=== PATIENT | female | born 1995 | race Caucasian/White ===

== ENCOUNTER 2019-02-23 23:53 | Inpatient (IN) ==
[2019-02-24] MEDS ORDERED: ONDANSETRON 4 MG TAB.RAPDIS PO PRN (00:03)
[2019-02-24] MEDS ORDERED: OXYTOCIN/DEXTROSE 5%-WATER 30 UNITS/500 ML BAG IV ONE ×2 (00:03→13:31)
[2019-02-24] MEDS ORDERED: RINGER'S SOLUTION,LACTATED 1,000 ML IV ONE (00:03)
[2019-02-24 00:24] LABS: Hematocrit 35.3 % (37.0-47.0); Hemoglobin 11.7 gm/dL (12.5-16.0); Mean Cell Volume 94.6 fl (78-100); Mean Corpuscular Hemoglobin 31.4 pg (27-31); Mean Corpuscular Hgb Conc 33.1 g/dl (32-36); Mean Platelet Volume 12.6 fl (8-12.5); Neutrophil # 9.2 K/mm3 (1.3-6.0); Neutrophil % 76.8 % (42-75.0); Platelet Count 112 K/mm3 (150-450); Red Blood Count 3.73 M/mm3 (4.2-5.4); Red Cell Distribution Width 13.3 % (11.5-14.0)
[2019-02-24 00:35] LABS: Cocaine Ur Negative (NEGATIVE); Urine Barbiturate Negative (NEGATIVE); Urine Benzodiazepines Negative (NEGATIVE); Urine Opiates Negative (NEGATIVE); Urine PCP Negative (NEGATIVE); Urine THC Negative (NEGATIVE)
[2019-02-24] MEDS: VANCOMYCIN HCL 1 GM in DEXTROSE 5 % IN WATER 250 ML IV SCH ×4 (00:42→12:05)
[2019-02-24] MEDS ORDERED: NALOXONE HCL 1 MG/1 ML SYRG IV PRN (03:53)
[2019-02-24] MEDS ORDERED: ONDANSETRON HCL/PF 2 MG/ML VIAL IV PRN (03:53)
[2019-02-24] MEDS ORDERED: BUPIVACAINE HCL/0.9 % NACL/PF 250 ML EP PRN (03:53)
[2019-02-24] MEDS ORDERED: LIDOCAINE HCL/EPINEPHRINE 20 ML VIAL IJ ONE (03:56)
[2019-02-24] MEDS ORDERED: fentaNYL CITRATE/PF 50 MCG/ML AMPUL IT SCH (04:00)
--- NOTE | 2019-02-24 04:38 | ANES ---
Anesthesia Pre Procedure Eval Vitals/Labs: Last Vital Signs Temp 36.1 C 02/24/19 01:55 Pulse 101 H 02/24/19 01:55 Resp 18 02/24/19 01:55 BP 138/74 02/24/19 01:55 Pulse Ox 99 02/24/19 01:55 Allergies/Adverse Reactions: Allergies Allergy/AdvReac Type Severity Reaction Status Date / Time Penicillins Allergy Severe Swelling Verified 02/24/19 01:46 of Throat penicillin G Allergy Intermediate Swelling Verified 02/24/19 01:46 of Throat latex AdvReac Swelling Verified 02/24/19 01:46 of Throat - Planned Procedure Planned Procedure: ELECTIVE INDUCTION 39 WEEKS Medication List Reviewed:: Yes Allergies Verified: Yes Medical History (Updated 02/14/19 @ 12:44 by Terrence Callahan DO) Thrombocytopenia (Acute) Onset Date: ~2012 2012 & 2014 & 2018 Anemia Marijuana abuse Mild Tourette's syndrome Onset Date: ~1999 Rh negative status during Tobacco abuse Asthma Onset Date: ~2004 no hospitalization, no current medications. Eczema History of seizure disorder Last seizure when pt was in grade school, no current medications. Hx of migraines Seasonal allergies Abnormal Papanicolaou smear of cervix with positive human papilloma virus (HPV) test Onset Date: ~09/04/14 Gestational hypertension Onset Date: ~08/2012 History of chlamydia infection Onset Date: ~05/22/16 Trigger thumb of right hand Onset Date: ~2004 ADD (attention deficit disorder) Onset Date: ~1999 no current medications Anorexia Onset Date: ~2007 Hospitalized at [facility] Gastric ulcer Onset Date: ~2006 no current medications Surgical History (Updated 12/30/18 @ 23:02 by Terrence Callahan DO) No pertinent past surgical history History of wisdom tooth extraction Onset Date: ~08/2014 Family History (Updated 09/01/18 @ 11:42 by Rosalia Kennedy LPN) Father Unknown family medical history Mother Breast cancer Endometriosis Anemia Thyroid disease - Family Anesthesia History Family History:: no untoward family reactions to anesthesia, no familial bleeding tendencies, no family history of clotting disorders, no family history of premature - Airway/Neck/Teeth Teeth Condition: intact Neck Exam: full range of motion Mallampatti Score: 2 Thyromental (T-M) distance: > 6 cm Mandibulo Hyoid distance: > 3 cm - Respiratory Respiratory History: asthma Respiratory Physical: lungs clear Smoking Status: Current every day smoker Sleep Apnea currently treated: No Sleep Apnea by current assessment: No - Cardiovascular Tolerate Activity: Fair Heart Sounds: S1 & S2, Regular - Anesthesia Assessment and Plan ASA Class: PS, II, E Anesthesia Type Plan: Epidural - CSE for labor analgesia
--- NOTE | 2019-02-24 05:00 | ANES ---
Post Anesthesia Discharge - Transfer of Care Transfer of Care handoff given to nurse: Yes - Discharge from PACU Discharge from PACU when meets criteria: Yes - Comfortable post CSE
--- NOTE | 2019-02-24 05:02 | ANES ---
Anesthesia Procedure Note Procedure Note: ANESTHESIA PROCEDURE NOTE Date of Procedure: [02/24/2019 Time of procedure: 4:35 AM. Performed by: TORIE Allen CRNA, MSN Clinical Appeals Rn: Danyell Miller RN. Preprocedure diagnosis: Active labor, labor pain. Post procedure diagnosis: Same. Procedure:Epidural for labor analgesia L3-4. Indications: Labor pain. Findings: See below. Details of the procedure: The patient was placed on the side of the bed in sitting positionand prepped with DuraPrep then draped in a sterile fashion. Lidocaine 1% was infiltrated to the skin and subcutaneous tissues at the level of the L3-4 interspace. An 18-gauge Touhy needle was used to approach the epidural space with loss of resistance technique. Once loss of resistance was achieved a 27-gauge spinal needle was passed through the epidural needle and CSF was contacted. After CSF returned, 20 mcg of fentanyl was injected in the spinal needle was removed the epidural catheter was then threaded approximately 4 cm in the epidural needle was removed. The catheter was taped in place and after careful aspiration 3 mL of 1.5% lidocaine with 1-200,000 epinephrine was injected without change in maternal heart rate or sensorium. . EBL: Minimal. Fluids: N/A. Specimen: N/A. Post procedure condition: The patient tolerated the procedure well with good relief. No complications were noted. Thank you for this consultation. Praful Fry CRNA, ARNP, MSN
--- NOTE | 2019-02-24 05:09 | ANES ---
Post Anesthesia Assessment - Vital Signs Vitals: Last Vital Signs Temp 36.1 C 02/24/19 01:55 Pulse 101 H 02/24/19 01:55 Resp 18 02/24/19 01:55 BP 138/74 02/24/19 01:55 Pulse Ox 99 02/24/19 01:55 Airway Patency: Normal - Mental Status Level Of Consciousness: Awake, Alert, Appropriate - Pain Level Pain Score: 0 - N/V Assessment Nausea/Vomiting Presence: None Dehydration:: No
--- NOTE | 2019-02-24 08:28 | HP ---
Chief Complaint - Chief Complaint Date of Service: 02/24/19 Time of Service: 08:28 Chief Complaint: elective induction of labor History of Present Illness: 23 yo at 39 weeks presents for elective induction of labor. This complicated by anemia, ashtma, chlamydia infection (1st trimester- tx'd), gestational thrombocytopenia, h/o of GHTN, smoker, and THC use. Rh negative Rubella immune GBS positive. Medical History (Updated 02/24/19 @ 08:28 by Terrence Callahan DO) Thrombocytopenia (Acute) Onset Date: ~2012 2012 & 2014 & 2018 Anemia Marijuana abuse Mild Tourette's syndrome Onset Date: ~1999 Rh negative status during Tobacco abuse Asthma Onset Date: ~2004 no hospitalization, no current medications. Eczema History of seizure disorder Last seizure when pt was in grade school, no current medications. Hx of migraines Seasonal allergies Abnormal Papanicolaou smear of cervix with positive human papilloma virus (HPV) test Onset Date: ~09/04/14 Gestational hypertension Onset Date: ~08/2012 History of chlamydia infection Onset Date: ~05/22/16 Trigger thumb of right hand Onset Date: ~2004 ADD (attention deficit disorder) Onset Date: ~1999 no current medications Anorexia Onset Date: ~2007 Hospitalized at [facility] Gastric ulcer Onset Date: ~2006 no current medications Surgical History: Surgical History (Updated 12/30/18 @ 23:02 by Terrence Callahan DO) No pertinent past surgical history History of wisdom tooth extraction Onset Date: ~08/2014 Family History: Family History (Updated 09/01/18 @ 11:42 by Rosalia Kennedy LPN) Father Unknown family medical history Mother Breast cancer Endometriosis Anemia Thyroid disease Social History: (Last Updated 02/15/19 @ 14:29 by Terrence Callahan DO) Social History: Marital status: Single household members: children current occupational status: unemployed current occupational exposures/hazards: No Highest education level completed: high school graduate Service: No Tobacco: Smoking Status: Current every day smoker tobacco type: cigarettes Alcohol: alcohol intake: current details: none since +UPT Substance Use: substance use type: marijuana, other details: stopped with +UPT Dietary Habits: caffeine: Yes caffeine comment: several daily Type: carbonated beverages, coffee, tea Personal Safety: do you feel safe at home: Yes victim of physical abuse: No victim of emotional abuse: No victim of sexual abuse: No Review Of Systems (GEN) - Review of Systems Generalized/Overall Review: Present: No Symptoms Reported EENTM: Present: No Symptoms Reported Respiratory: Present: No Symptoms Reported Cardiac: Present: No Symptoms Reported Abdominal: Present: No Symptoms Reported Genitourinary: Present: No Symptoms Reported Musculoskeletal: Present: No Symptoms Reported Neurological: Present: No Symptoms Reported Skin: Present: No Symptoms Reported Endocrine: Present: No Symptoms Reported Immunizations: IMMUNIZATION HX Immunizations Up to Date Yes History of Influenza Vaccine No Hx Pneumococcal Vaccination No Allergies/Adverse Reactions: Allergies Allergy/AdvReac Type Severity Reaction Status Date / Time Penicillins Allergy Severe Swelling Verified 02/24/19 01:46 of Throat penicillin G Allergy Intermediate Swelling Verified 02/24/19 01:46 of Throat latex AdvReac Swelling Verified 02/24/19 01:46 of Throat Exam - Exam Vital Signs: Vital Signs - Last Taken Temp 36.1 C 02/24/19 01:55 Pulse 101 H 02/24/19 01:55 Resp 18 02/24/19 01:55 BP 138/74 02/24/19 01:55 Pulse Ox 99 02/24/19 01:55 Constitutional: Present: Alert, Oriented x3, Cooperative, No distress ENT Exam: Present: hearing grossly normal Breasts: Present: Exam deferred Respiratory: Present: lungs clear, no respiratory distress Cardiovascular/Chest: Present: regular rate, rhythm, no edema Abdomen: Present: soft, nontender, no rebound tenderness, other - gravid /Rectal: Present: Other - 1-2/50/-2 Extremity: Present: no calf tenderness, lower extremity edema - 1+ Skin Exam: Present: normal color, warm/dry, no cyanosis Neurologic: Present: alert, normal mood/affect, oriented x 3 Appearance: Present: appropriate appearance, appropriate insight Eye contact: Present: cooperative, good eye contact Thoughts: Present: normal thought pattern Diagnostic Studies: Abnormal Lab Results 02/24/19 Range/Units 00:15 WBC 12.0 H (4.0-10.5) K/mm3 RBC 3.73 L (4.2-5.4) M/mm3 Hgb 11.7 L (12.5-16.0) gm/dL Hct 35.3 L (37.0-47.0) % MCH 31.4 H (27-31) pg Plt Count 112 L (150-450) K/mm3 MPV 12.6 H (8-12.5) fl Immature Gran % (Auto) 0.50 H (0.001-0.429) % Immature Gran # (Auto) 0.06 H (0.000-0.0310) K/mm3 Neutrophils % 76.8 H (42-75.0) % Lymphocytes % 14.8 L (20-51) % Neutrophils # 9.2 H (1.3-6.0) K/mm3 Laboratory Results WBC 12.0 K/mm3 (4.0-10.5) H 02/24/19 00:15 RBC 3.73 M/mm3 (4.2-5.4) L 02/24/19 00:15 Hgb 11.7 gm/dL (12.5-16.0) L 02/24/19 00:15 Hct 35.3 % (37.0-47.0) L 02/24/19 00:15 MCV 94.6 fl (78-100) 02/24/19 00:15 MCH 31.4 pg (27-31) H 02/24/19 00:15 MCHC 33.1 g/dl (32-36) 02/24/19 00:15 RDW 13.3 % (11.5-14.0) 02/24/19 00:15 Plt Count 112 K/mm3 (150-450) L 02/24/19 00:15 MPV 12.6 fl (8-12.5) H 02/24/19 00:15 Immature Gran % (Auto) 0.50 % (0.001-0.429) H 02/24/19 00:15 Immature Gran # (Auto) 0.06 K/mm3 (0.000-0.0310) H 02/24/19 00:15 76.8 % (42-75.0) H 02/24/19 00:15 14.8 % (20-51) L 02/24/19 00:15 6.7 % (0.0-9) 02/24/19 00:15 0.9 % (0.0-3.0) 02/24/19 00:15 0.3 % (0.0-1.0) 02/24/19 00:15 Nucleated RBC % 0.0 k/mm3 (0-1) 02/24/19 00:15 9.2 K/mm3 (1.3-6.0) H 02/24/19 00:15 1.77 k/mm3 (1.5-3.5) 02/24/19 00:15 0.8 k/mm3 (0.0-1.0) 02/24/19 00:15 0.1 k/mm3 (0.0-0.7) 02/24/19 00:15 Absolute Basophils 0.0 k/mm3 (0.0-0.1) 02/24/19 00:15 Negative (NEGATIVE) 02/24/19 00:19 Negative (NEGATIVE) 02/24/19 00:19 Ur Phencyclidine Scrn Negative (NEGATIVE) 02/24/19 00:19 Urine Amphetamine Negative (NEGATIVE) 02/24/19 00:19 U Benzodiazepines Scrn Negative (NEGATIVE) 02/24/19 00:19 Negative (NEGATIVE) 02/24/19 00:19 Negative (NEGATIVE) 02/24/19 00:19 Assessment/Plan - Assessment/Plan (1) Elective induction of labor planned Assessment: Admit for pitocin induction of labor. IV Vancomycin for GBS prophylaxis. Epidural PRN. Problem: Acute (2) Gestational thrombocytopenia without hemorrhage Problem: Chronic Qualifiers: Trimester: third trimester Qualified Code(s): O99.113 - Other diseases of the blood and blood-forming organs and certain disorders involving the immune mechanism complicating , third trimester; D69.6 - Thrombocytopenia, unspecified (3) GBS (group B Streptococcus carrier), +RV culture, currently Problem: Acute (4) History of gestational hypertension Problem: Chronic
--- NOTE | 2019-02-24 08:30 | PN ---
Progess Note - Interim Date: 02/24/19 Time: 08:29 Narrative: 02/24/19 08:29 Patient comfortable with epidural Vital signs stable. Pitocin at 12 mu/min. FHT: 150 baseline, reassuring contractions q 2-3 min Cervix: 3-4/40/-3, AROM-clear Impression: Intrauterine at 39 weeks elective induction of labor. GBS positive carrier with penicillin allergy and resistance to clindamycin-status post vancomycin x1 dose area Plan: Continue present plan
[2019-02-24] MEDS ORDERED: SENNOSIDES 8.6 MG TABLET PO PRN (13:31)
[2019-02-24] MEDS ORDERED: BENZOCAINE/MENTHOL 81 SPRAY CAN TP PRN (13:31)
[2019-02-24] MEDS ORDERED: HYDROCORTISONE 30 APPL TUBE TP PRN (13:31)
[2019-02-24] MEDS ORDERED: GLYCERIN/WITCH HAZEL LEAF 40 APPL BOX TP PRN (13:31)
[2019-02-24] MEDS ORDERED: BISACODYL 10 MG SUPP.RECT RC PRN (13:31)
--- NOTE | 2019-02-24 13:34 | OR ---
Operative Report - Dictated Report Narrative: Spontaneous vaginal delivery of vigorously crying viable male at 1306 on 02/24/2019 with Apgars 8 and 9, weighing 3771 g in OP presentation. Cord clamping delayed approximately 1 minute Placenta delivered complete, intact, with three vessel cord Estimated blood loss: Less than 50 ml Anesthesia: Epidural Lacerations: None History for MU History for MU Definition: * The number of deliveries resulting in a live the patient experienced prior to current hospitalization * The previous delivery of live twins or any live multiple gestation is considered one live event. *If primagravida or nulliparous is documented select zero for the number of previous live births. Live Events: Live Events: 2
[2019-02-24] MEDS: IBUPROFEN 800 MG TABLET PO PRN ×2 (13:52→19:56)
[2019-02-24] MEDS: oxyCODONE HCL/ACETAMINOPHEN 1 TAB TABLET PO PRN ×3 (15:01→23:18)
[2019-02-24] MEDS ORDERED: RHO(D) IMMUNE GLOBULIN 1,500 UNIT SYRINGE IM ONE (21:45)
[2019-02-24] MEDS: DOCUSATE SODIUM 100 MG CAPSULE PO SCH (21:48)
--- NOTE | 2019-02-25 07:52 | PN ---
Subjective - Date and Time Seen Date: 02/25/19 Time: 07:52 Objective - Vitals Vitals: Last Vital Signs Temp 36.8 C 02/25/19 07:13 Pulse 98 02/25/19 07:13 Resp 16 02/25/19 07:13 BP 120/61 02/25/19 07:13 Pulse Ox 98 02/25/19 07:13 Patient denies complaints. Lochia wnl abdomen - soft, nontender Uterus -firm, at umbilicus - 1 no calf tenderness Impression: day #1 - s/p spontaneous vaginal delivery. Plan: Continue routine care Cauti Physician Documentation - Urinary Catheter Management Urethral ([place]) Date of Insertion: 02/24/19 Time of Insertion: 05:15 Assessment/Plan - Problems/Diagnosis (1) Elective induction of labor planned Problem: Acute (2) Gestational thrombocytopenia without hemorrhage Problem: Chronic Qualifiers: Trimester: third trimester Qualified Code(s): O99.113 - Other diseases of the blood and blood-forming organs and certain disorders involving the immune mechanism complicating , third trimester; D69.6 - Thrombocytopenia, unspecified (3) GBS (group B Streptococcus carrier), +RV culture, currently Problem: Acute (4) History of gestational hypertension Problem: Chronic
[2019-02-25] MEDS: IBUPROFEN 800 MG TABLET PO PRN ×2 (08:11→21:07)
[2019-02-25] MEDS: DOCUSATE SODIUM 100 MG CAPSULE PO SCH ×2 (08:17→21:06)
[2019-02-25] MEDS: oxyCODONE HCL/ACETAMINOPHEN 1 TAB TABLET PO PRN ×2 (11:45→18:55)
[2019-02-26] MEDS: IBUPROFEN 800 MG TABLET PO PRN ×2 (07:42→13:32)
[2019-02-26] MEDS: DOCUSATE SODIUM 100 MG CAPSULE PO SCH ×2 (07:43→10:04)
[2019-02-26] MEDS: oxyCODONE HCL/ACETAMINOPHEN 1 TAB TABLET PO PRN (07:44)
--- NOTE | 2019-02-26 12:51 | PN ---
Subjective - Date and Time Seen Date: 02/26/19 Time: 12:50 Objective - Vitals Vitals: Last Vital Signs Temp 36.7 C 02/26/19 08:30 Pulse 95 02/26/19 08:30 Resp 16 02/26/19 08:30 BP 115/80 02/26/19 08:30 Pulse Ox 99 02/26/19 08:30 Patient denies complaints. Lochia wnl abdomen - soft, nontender Uterus -firm, at umbilicus - 2 no calf tenderness Impression: day #2 - s/p spontaneous vaginal delivery. Plan: Routine discharge instructions Cauti Physician Documentation - Urinary Catheter Management Urethral ([place]) Date of Insertion: 02/24/19 Time of Insertion: 05:15 Assessment/Plan - Problems/Diagnosis (1) Elective induction of labor planned Problem: Acute (2) Gestational thrombocytopenia without hemorrhage Problem: Chronic Qualifiers: Trimester: third trimester Qualified Code(s): O99.113 - Other diseases of the blood and blood-forming organs and certain disorders involving the immune mechanism complicating , third trimester; D69.6 - Thrombocytopenia, unspecified (3) GBS (group B Streptococcus carrier), +RV culture, currently Problem: Acute (4) History of gestational hypertension Problem: Chronic
[2019-02-26 13:39] VITALS: BP 143/73
== END 2019-02-26 13:45 | disposition home or self-care (01) | DRG 806 ==
LOC: OB 23:53
PROVIDERS: ADMIT Obstetrics & Gynecology; ATTEND Obstetrics & Gynecology
CPT/HCPCS: 36415; 59025; 80307; 85025; 85460; J2790

== ENCOUNTER 2020-02-16 00:02 | Inpatient (IN) ==
[2020-02-16] MEDS ORDERED: DEXTROSE 5%-LACTATED RINGERS 1,000 ML IV PRN (00:21)
[2020-02-16] MEDS ORDERED: OXYTOCIN/0.9 % SODIUM CHLORIDE 30 UNITS/500 ML BAG IV ONE ×2 (00:21→12:51)
[2020-02-16] MEDS ORDERED: RINGER'S SOLUTION,LACTATED 1,000 ML IV ONE (00:21)
[2020-02-16 00:42] LABS: Hematocrit 35.4 % (37.0-47.0); Hemoglobin 11.7 gm/dL (12.5-16.0); Mean Cell Volume 95.4 fl (78-100); Mean Corpuscular Hemoglobin 31.5 pg (27-31); Mean Corpuscular Hgb Conc 33.1 g/dl (32-36); Mean Platelet Volume 12.7 fl (8-12.5); Neutrophil # 8.4 K/mm3 (1.3-6.0); Neutrophil % 76.4 % (42-75.0); Platelet Count 112 K/mm3 (150-450); Red Blood Count 3.71 M/mm3 (4.2-5.4); Red Cell Distribution Width 13.8 % (11.5-14.0)
[2020-02-16 01:35] LABS: Cocaine Ur Negative (NEGATIVE); Urine Barbiturate Negative (NEGATIVE); Urine Benzodiazepines Negative (NEGATIVE); Urine Opiates Negative (NEGATIVE); Urine PCP Negative (NEGATIVE); Urine THC Negative (NEGATIVE)
[2020-02-16] MEDS ORDERED: ONDANSETRON HCL/PF 2 MG/ML VIAL IV PRN (03:27)
[2020-02-16] MEDS ORDERED: BUPIVACAINE HCL/0.9 % NACL/PF 250 ML EP PRN (03:27)
[2020-02-16] MEDS ORDERED: NALOXONE HCL 1 MG/1 ML SYRG IV PRN (03:27)
[2020-02-16] MEDS ORDERED: fentaNYL CITRATE/PF 50 MCG/ML AMPUL IT SCH (03:30)
--- NOTE | 2020-02-16 04:20 | ANES ---
Post Anesthesia Assessment - Vital Signs Vitals: Last Vital Signs Temp 36.7 C 02/16/20 00:25 Pulse 96 02/16/20 00:25 Resp 17 02/16/20 00:25 BP 138/71 02/16/20 00:25 Pulse Ox 99 02/16/20 00:25 Airway Patency: Normal - Mental Status Level Of Consciousness: Awake - Pain Level Pain Score: 2 - N/V Assessment Nausea/Vomiting Presence: None Dehydration:: No
--- NOTE | 2020-02-16 04:21 | ANES ---
Anesthesia Pre Procedure Eval Vitals/Labs: Last Vital Signs Temp 36.7 C 02/16/20 00:25 Pulse 96 02/16/20 00:25 Resp 17 02/16/20 00:25 BP 138/71 02/16/20 00:25 Pulse Ox 99 02/16/20 00:25 HOME MEDICATIONS NK 02/16/20 [Last Taken Unknown] Allergies/Adverse Reactions: Allergies Allergy/AdvReac Type Severity Reaction Status Date / Time Penicillins Allergy Severe Swelling Verified 02/16/20 00:23 of Throat penicillin G Allergy Intermediate Swelling Verified 02/16/20 00:23 of Throat latex AdvReac Swelling Verified 02/16/20 00:23 of Throat - Planned Procedure Planned Procedure: elective induction Medication List Reviewed:: Yes Allergies Verified: Yes Medical History (Last Reviewed 02/16/20 @ 04:20 by El Lamb CRNA) Bipolar affective disorder, current episode depressed (Chronic) Onset Date: Unknown Attention deficit hyperactivity disorder (Chronic) Onset Date: Unknown Anemia Onset Date: Unknown Marijuana abuse Onset Date: Unknown Mild Tourette's syndrome Onset Date: ~1999 Onset Date: 06/22/19 Rh negative status during Onset Date: 06/22/19 Thrombocytopenia affecting Onset Date: 12/01/19 Tobacco abuse Onset Date: Unknown Trichomoniasis Onset Date: 06/22/19 Asthma Onset Date: ~2004 no hospitalization, no current medications. Eczema Onset Date: Unknown History of seizure disorder Onset Date: Unknown Last seizure when pt was in grade school, no current medications. Hx of migraines Onset Date: Unknown Seasonal allergies Onset Date: Unknown Abnormal Papanicolaou smear of cervix with positive human papilloma virus (HPV) test Onset Date: ~09/04/14 Gestational hypertension Onset Date: ~08/2012 History of chlamydia infection Onset Date: ~05/22/16 Thrombocytopenia (Resolved) Onset Date: ~2012 2012 & 2014 & 2019 Trigger thumb of right hand Onset Date: ~2004 ADD (attention deficit disorder) Onset Date: ~1999 no current medications Anorexia Onset Date: ~2007 Hospitalized at [facility] Gastric ulcer Onset Date: ~2006 no current medications Surgical History (Last Reviewed 02/16/20 @ 04:20 by El Lamb CRNA) History of wisdom tooth extraction Onset Date: ~08/2014 Family History (Last Reviewed 02/16/20 @ 04:20 by El Lamb CRNA) Father Unknown family medical history Mother Breast cancer Endometriosis Anemia Thyroid disease - Family Anesthesia History Family History:: no untoward family reactions to anesthesia - Airway/Neck/Teeth Within Normal Limits:: Yes Teeth Condition: intact Neck Exam: full range of motion Mallampatti Score: 2 Thyromental (T-M) distance: > 6 cm Mandibulo Hyoid distance: > 3 cm - Respiratory Respiratory Physical: lungs clear Smoking Status: Current every day smoker Discussed smoking cessation including day of surgery: Yes Sleep Apnea currently treated: No Sleep Apnea by current assessment: No - Cardiovascular Tolerate Activity: Good Heart Sounds: S1 & S2, Regular - Gastrointestinal NPO since: mn - Anesthesia Assessment and Plan ASA Class: PS, II, E Anesthesia Type Plan: Epidural Planned difficult intubation/equipment available: No
--- NOTE | 2020-02-16 04:21 | ANES ---
Post Anesthesia Discharge - Transfer of Care Transfer of Care handoff given to nurse: Yes - Anesthesia Post Op Note Anesthesia Post Op Note: Care transferred to OB RN
--- NOTE | 2020-02-16 04:23 | ANES ---
Anesthesia Procedure Note Procedure Note: ANESTHESIA PROCEDURE NOTE Date of Procedure: 02/16/2020 Time of procedure: 09 15. Performed by: Romeo Lamb CRNA Forensic Chemist: None. Preprocedure diagnosis: Active labor. Post procedure diagnosis: Same. Procedure: Insertion of labor epidural. Indications: The patient is a 24-year-old multigravida female in active labor requesting labor epidural for pain management. Findings: See below. Details of the procedure: The patient was placed in a sitting position. Back was prepped with DuraPrep. Patient was then draped in a sterile fashion. Lidocaine 1% was infiltrated to the skin and subcutaneous tissues at the level of the L3 4 interspace. The epidural space was identified using a 18-gauge Tuohy needle with [id number] technique. 20 mcg fentanyl was given intrathecally using a 27 ga. spinal needle. Epidural catheter was inserted without difficulty. Negative test dose was elicited using 5 mL of 1.5% preservative-free lidocaine plus epinephrine 1 200,000. The epidural catheter was then taped and secured in place. EBL: Minimal. Fluids: N/A. Specimen: N/A. Post procedure condition: The patient tolerated the procedure well. No complications were noted. Thank you for this consultation. Lanier CRNA
--- NOTE | 2020-02-16 08:45 | HP ---
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 This complicated by anemia, ADHD, asthma, bipolar d/o, gestational thrombocytopenia, smoker, THC use, and h/o GHTN. Rh negative Rubella immune GBS negative Medical History (Last Reviewed 02/16/20 @ 08:38 by Terrence Callahan DO) Bipolar affective disorder, current episode depressed (Chronic) Onset Date: Unknown Attention deficit hyperactivity disorder (Chronic) Onset Date: Unknown Anemia Onset Date: Unknown Marijuana abuse Onset Date: Unknown Mild Tourette's syndrome Onset Date: ~1999 Onset Date: 06/22/19 Rh negative status during Onset Date: 06/22/19 Thrombocytopenia affecting Onset Date: 12/01/19 Tobacco abuse Onset Date: Unknown Trichomoniasis Onset Date: 06/22/19 Asthma Onset Date: ~2004 no hospitalization, no current medications. Eczema Onset Date: Unknown History of seizure disorder Onset Date: Unknown Last seizure when pt was in grade school, no current medications. Hx of migraines Onset Date: Unknown Seasonal allergies Onset Date: Unknown Abnormal Papanicolaou smear of cervix with positive human papilloma virus (HPV) test Onset Date: ~09/04/14 Gestational hypertension Onset Date: ~08/2012 History of chlamydia infection Onset Date: ~05/22/16 Thrombocytopenia (Resolved) Onset Date: ~2012 2012 & 2014 & 2019 Trigger thumb of right hand Onset Date: ~2004 ADD (attention deficit disorder) Onset Date: ~1999 no current medications Anorexia Onset Date: ~2007 Hospitalized at [facility] Gastric ulcer Onset Date: ~2006 no current medications Surgical History: Surgical History (Last Reviewed 02/16/20 @ 08:39 by Terrence Callahan DO) History of wisdom tooth extraction Onset Date: ~08/2014 Family History: Family History (Last Reviewed 02/16/20 @ 08:39 by Terrence Callahan DO) Father Unknown family medical history Mother Breast cancer Endometriosis Anemia Thyroid disease Social History: (Last Reviewed 02/16/20 @ 08:39 by Terrence Callahan DO) Social History: adopted: No long term: No Marital status: Single household members: children, significant other number of children: 3 current occupational status: unemployed current occupational exposures/hazards: No Highest education level completed: high school graduate Sexually Active: Yes Service: No Tobacco: Smoking Status: Current every day smoker tobacco type: cigarettes Smoking cigarettes per day: 10 Alcohol: alcohol intake: current alcohol intake frequency: holiday/special occasion details: none since +UPT Substance Use: substance use type: marijuana, other details: Stopped with +UPT Dietary Habits: caffeine: No Exercise: frequency: does not exercise Hattie/Judaism: agree to transfusion: Yes Personal Safety: do you feel safe at home: Yes victim of physical abuse: No victim of emotional abuse: No victim of sexual abuse: No Review Of Systems (GEN) - Review of Systems Generalized/Overall Review: Present: No Symptoms Reported EENTM: Present: No Symptoms Reported Respiratory: Present: No Symptoms Reported Cardiac: Present: No Symptoms Reported Abdominal: Present: No Symptoms Reported Genitourinary: Present: No Symptoms Reported Musculoskeletal: Present: No Symptoms Reported Neurological: Present: No Symptoms Reported Skin: Present: No Symptoms Reported Endocrine: Present: No Symptoms Reported Immunizations: IMMUNIZATION HX Immunizations Up to Date Yes History of Influenza Vaccine No Hx Pneumococcal Vaccination No Allergies/Adverse Reactions: Allergies Allergy/AdvReac Type Severity Reaction Status Date / Time Penicillins Allergy Severe Swelling Verified 02/16/20 00:23 of Throat penicillin G Allergy Intermediate Swelling Verified 02/16/20 00:23 of Throat latex AdvReac Swelling Verified 02/16/20 00:23 of Throat Home Medications: HOME MEDICATIONS NK 02/16/20 [Last Taken Unknown] Exam - Exam Vital Signs: Vital Signs - Last Taken Temp 36.7 C 02/16/20 00:25 Pulse 96 02/16/20 00:25 Resp 17 02/16/20 00:25 BP 138/71 02/16/20 00:25 Pulse Ox 99 02/16/20 00:25 Constitutional: Present: Alert, Oriented x3, Cooperative, No distress ENT Exam: Present: hearing grossly normal Breasts: Present: Exam deferred Respiratory: Present: lungs clear, no respiratory distress Cardiovascular/Chest: Present: regular rate, rhythm, no edema Abdomen: Present: soft, nontender, no rebound tenderness, other - gravid /Rectal: Present: Other - Cervix 3/60/-2 Extremity: Present: no pedal edema, no calf tenderness Skin Exam: Present: normal color, warm/dry, no cyanosis Neurologic: Present: alert, normal mood/affect, oriented x 3 Appearance: Present: appropriate appearance, appropriate insight Eye contact: Present: cooperative, good eye contact Thoughts: Present: normal thought pattern, normal mood /affect Diagnostic Studies: Abnormal Lab Results 02/16/20 Range/Units 00:30 WBC 11.0 H (4.0-10.5) K/mm3 RBC 3.71 L (4.2-5.4) M/mm3 Hgb 11.7 L (12.5-16.0) gm/dL Hct 35.4 L (37.0-47.0) % MCH 31.5 H (27-31) pg Plt Count 112 L (150-450) K/mm3 MPV 12.7 H (8-12.5) fl Immature Gran # (Auto) 0.04 H (0.000-0.0310) K/mm3 Neutrophils % 76.4 H (42-75.0) % Lymphocytes % 16.8 L (20-51) % Neutrophils # 8.4 H (1.3-6.0) K/mm3 Laboratory Results WBC 11.0 K/mm3 (4.0-10.5) H 02/16/20 00:30 RBC 3.71 M/mm3 (4.2-5.4) L 02/16/20 00:30 Hgb 11.7 gm/dL (12.5-16.0) L 02/16/20 00:30 Hct 35.4 % (37.0-47.0) L 02/16/20 00:30 MCV 95.4 fl (78-100) 02/16/20 00:30 MCH 31.5 pg (27-31) H 02/16/20 00:30 MCHC 33.1 g/dl (32-36) 02/16/20 00:30 RDW 13.8 % (11.5-14.0) 02/16/20 00:30 Plt Count 112 K/mm3 (150-450) L 02/16/20 00:30 MPV 12.7 fl (8-12.5) H 02/16/20 00:30 Immature Gran % (Auto) 0.40 % (0.001-0.429) 02/16/20 00:30 Immature Gran # (Auto) 0.04 K/mm3 (0.000-0.0310) H 02/16/20 00:30 Neutrophils % 76.4 % (42-75.0) H 02/16/20 00:30 Lymphocytes % 16.8 % (20-51) L 02/16/20 00:30 Monocytes % 5.4 % (0.0-9) 02/16/20 00:30 Eosinophils % 0.8 % (0.0-3.0) 02/16/20 00:30 Basophils % 0.2 % (0.0-1.0) 02/16/20 00:30 Nucleated RBC % 0.0 k/mm3 (0-1) 02/16/20 00:30 Neutrophils # 8.4 K/mm3 (1.3-6.0) H 02/16/20 00:30 Lymphocytes # 1.84 k/mm3 (1.5-3.5) 02/16/20 00:30 Monocytes # 0.6 k/mm3 (0.0-1.0) 02/16/20 00:30 Eosinophils # 0.1 k/mm3 (0.0-0.7) 02/16/20 00:30 Absolute Basophils 0.0 k/mm3 (0.0-0.1) 02/16/20 00:30 Urine Opiates Screen Negative (NEGATIVE) 02/16/20 00:21 Barbiturate Screen Negative (NEGATIVE) 02/16/20 00:21 Ur Phencyclidine Scrn Negative (NEGATIVE) 02/16/20 00:21 Urine Amphetamine Negative (NEGATIVE) 02/16/20 00:21 U Benzodiazepines Scrn Negative (NEGATIVE) 02/16/20 00:21 Urine Cocaine Screen Negative (NEGATIVE) 02/16/20 00:21 Urine Marijuana (THC) Negative (NEGATIVE) 02/16/20 00:21 Assessment/Plan - Assessment/Plan (1) Encounter for induction of labor Assessment: Admit for induction of labor. Epidural PRN. Problem: Acute (2) Asthma Problem: Acute Qualifiers: Asthma persistence: unspecified Asthma complication type: uncomplicated (3) Smoker Problem: Chronic (4) Marijuana use Problem: Inactive (5) Bipolar affective disorder, current episode depressed Problem: Chronic Qualifiers: Current episode severity: mild Qualified Code(s): F31.31 - Bipolar disorder, current episode depressed, mild (6) Attention deficit hyperactivity disorder Problem: Chronic Qualifiers: (7) Gestational thrombocytopenia without hemorrhage Problem: Chronic Qualifiers: Trimester: third trimester (8) History of gestational hypertension Problem: Chronic
--- NOTE | 2020-02-16 08:46 | PN ---
Progess Note - Interim Date: 02/16/20 Time: 08:45 Narrative: 02/16/20 08:45 Patient comfortable with epidural Vital signs stable. Pitocin at 8 mu/min. FHT: 120 baseline, reassuring contractions q 2-3 min Cervix: 4/50/-2, AROM-clear at 0810. Impression: Intrauterine at 39 weeks induction of labor Plan: Continue present plan
[2020-02-16] MEDS: ONDANSETRON 4 MG TAB.RAPDIS PO PRN ×2 (09:19→14:31)
--- NOTE | 2020-02-16 11:12 | PN ---
Progess Note - Interim Date: 02/16/20 Time: 11:10 Narrative: 02/16/20 11:10 Patient comfortable with epidural Vital signs stable. Pitocin at 8 mu/min. FHT: 120 baseline, reassuring contractions q 2-3 min Cervix: 8/90/+2 Impression: Intrauterine at 39 weeks induction of labor progressing well Plan: Anticipate normal spontaneous vaginal delivery soon.
[2020-02-16] MEDS ORDERED: GLYCERIN/WITCH HAZEL LEAF 40 APPL BOX TP PRN (12:51)
[2020-02-16] MEDS ORDERED: BENZOCAINE/MENTHOL 81 SPRAY CAN TP PRN (12:51)
[2020-02-16] MEDS ORDERED: HYDROCORTISONE 30 APPL TUBE TP PRN (12:51)
[2020-02-16] MEDS ORDERED: SENNOSIDES 8.6 MG TABLET PO PRN (12:51)
[2020-02-16] MEDS ORDERED: IBUPROFEN 800 MG TABLET PO PRN (12:51)
[2020-02-16] MEDS ORDERED: BISACODYL 10 MG SUPP.RECT RC PRN (12:51)
--- NOTE | 2020-02-16 12:55 | OR ---
Operative Report - Dictated Report Narrative: Spontaneous vaginal delivery of vigorously crying viable male at 1223 on 02/16/2020 with Apgars 8 and 8, weighing 3292 g and JASS position with tight nuchal cord x2. Cord clamping delayed approximately 1 minute Placenta delivered complete, intact, with three vessel cord Estimated blood loss: Less than 50 ml Anesthesia: Epidural Lacerations: None
--- NOTE | 2020-02-16 12:56 | PN ---
Progess Note - Interim Date: 02/16/20 Time: 12:55 History for MU History for MU Definition: * The number of deliveries resulting in a live the patient experienced prior to current hospitalization * The previous delivery of live twins or any live multiple gestation is considered one live event. *If primagravida or nulliparous is documented select zero for the number of previous live births. Live Events: Live Events: 3
[2020-02-16] MEDS: IBUPROFEN 800 MG TABLET PO PRN ×2 (13:50→19:46)
[2020-02-16] MEDS: oxyCODONE HCL/ACETAMINOPHEN 1 TAB TABLET PO PRN ×2 (13:50→19:46)
--- NOTE | 2020-02-16 14:15 | PN ---
Progess Note - Interim Date: 02/16/20 Time: 14:10 Narrative: 02/16/20 14:10 Called by nurse to come immediately to patient's bedside for severe hemorrhage. Upon assessment patient passed large cantaloupe size clot and had minimum amount of bleeding upon my arrival. In route to patient's bedside order was given to increase Pitocin to 30 milliunits/min and give 800 mcg of Cytotec rectally. Manual evacuation of the uterus and vaginal vault produced another for 500 cc of clotted blood. Uterus was firm approximately 20 weeks size with no significant bleeding. Straight cath removed approximately 30 mL of dark concentrated urine. Patient denies lightheadedness, dizziness, chest pain, or shortness of breath. Complains of bad menstrual-like cramping. Vital signs stable. Impression: hemorrhage most likely due to uterine atony responding well to uterine evacuation and uterotonic agents. Plan: Continue close monitoring of patient. Check CBC and type and screen.
[2020-02-16] MEDS ORDERED: ONDANSETRON 4 MG TAB.RAPDIS ONE (14:29)
[2020-02-16 14:52] LABS: Hematocrit 32.6 % (37.0-47.0); Hemoglobin 10.6 gm/dL (12.5-16.0); Mean Cell Volume 96.7 fl (78-100); Mean Corpuscular Hemoglobin 31.5 pg (27-31); Mean Corpuscular Hgb Conc 32.5 g/dl (32-36); Mean Platelet Volume 13.5 fl (8-12.5); Neutrophil # 12.7 K/mm3 (1.3-6.0); Neutrophil % 83.1 % (42-75.0); Platelet Count 119 K/mm3 (150-450); Red Blood Count 3.37 M/mm3 (4.2-5.4); Red Cell Distribution Width 14.1 % (11.5-14.0); White Blood Count 15.2 K/mm3 (4.0-10.5)
[2020-02-16] MEDS ORDERED: MISOPROSTOL 200 MCG TABLET RC ONE (14:58)
[2020-02-16] MEDS ORDERED: DOCUSATE SODIUM 100 MG CAPSULE PO SCH (21:00)
[2020-02-17] MEDS: oxyCODONE HCL/ACETAMINOPHEN 1 TAB TABLET PO PRN ×5 (00:06→23:56)
[2020-02-17] MEDS: IBUPROFEN 800 MG TABLET PO PRN ×3 (03:01→23:56)
[2020-02-17] MEDS ORDERED: RINGER'S SOLUTION,LACTATED 1,000 ML IV ONE (07:45)
[2020-02-17] MEDS ORDERED: ONDANSETRON HCL/PF 2 MG/ML VIAL ONE (08:58)
[2020-02-17] MEDS ORDERED: fentaNYL CITRATE/PF 50 MCG/ML AMPUL ONE (08:58)
[2020-02-17] MEDS ORDERED: LIDOCAINE HCL 20 ML VIAL ONE (08:58)
[2020-02-17] MEDS ORDERED: PROPOFOL VIAL IV ONE (08:59)
[2020-02-17] MEDS ORDERED: SUCCINYLCHOLINE CHLORIDE 20 MG/ML VIAL ONE (08:59)
--- NOTE | 2020-02-17 09:01 | ANES ---
Anesthesia Pre Procedure Eval Vitals/Labs: Last Vital Signs Temp 36.5 C 02/17/20 07:00 Pulse 80 02/17/20 07:00 Resp 18 02/17/20 07:00 BP 124/75 02/17/20 07:00 Pulse Ox 100 02/17/20 07:00 HOME MEDICATIONS NK 02/16/20 [Last Taken Unknown] Allergies/Adverse Reactions: Allergies Allergy/AdvReac Type Severity Reaction Status Date / Time Penicillins Allergy Severe Swelling Verified 02/16/20 00:23 of Throat penicillin G Allergy Intermediate Swelling Verified 02/16/20 00:23 of Throat latex AdvReac Swelling Verified 02/16/20 00:23 of Throat - Planned Procedure Planned Procedure: suction d and c Medication List Reviewed:: Yes Allergies Verified: Yes Medical History (Last Reviewed 02/17/20 @ 09:00 by El Lamb CRNA) Bipolar affective disorder, current episode depressed (Chronic) Onset Date: Unknown Attention deficit hyperactivity disorder (Chronic) Onset Date: Unknown Anemia Onset Date: Unknown Marijuana abuse Onset Date: Unknown Mild Tourette's syndrome Onset Date: ~1999 Onset Date: 06/22/19 Rh negative status during Onset Date: 06/22/19 Thrombocytopenia affecting Onset Date: 12/01/19 Tobacco abuse Onset Date: Unknown Trichomoniasis Onset Date: 06/22/19 Asthma Onset Date: ~2004 no hospitalization, no current medications. Eczema Onset Date: Unknown History of seizure disorder Onset Date: Unknown Last seizure when pt was in grade school, no current medications. Hx of migraines Onset Date: Unknown Seasonal allergies Onset Date: Unknown Abnormal Papanicolaou smear of cervix with positive human papilloma virus (HPV) test Onset Date: ~09/04/14 Gestational hypertension Onset Date: ~08/2012 History of chlamydia infection Onset Date: ~05/22/16 Thrombocytopenia (Resolved) Onset Date: ~2012 2012 & 2014 & 2019 Trigger thumb of right hand Onset Date: ~2004 ADD (attention deficit disorder) Onset Date: ~1999 no current medications Anorexia Onset Date: ~2007 Hospitalized at [facility] Gastric ulcer Onset Date: ~2006 no current medications Surgical History (Last Reviewed 02/17/20 @ 09:00 by El Lamb CRNA) History of wisdom tooth extraction Onset Date: ~08/2014 Family History (Last Reviewed 02/17/20 @ 09:00 by El Lamb CRNA) Father Unknown family medical history Mother Breast cancer Endometriosis Anemia Thyroid disease - Family Anesthesia History Family History:: no untoward family reactions to anesthesia - Airway/Neck/Teeth Within Normal Limits:: Yes Teeth Condition: intact Neck Exam: full range of motion Mallampatti Score: 2 Thyromental (T-M) distance: > 6 cm Mandibulo Hyoid distance: > 3 cm - Respiratory Smoking Status: Current every day smoker Discussed smoking cessation including day of surgery: Yes Sleep Apnea currently treated: No Sleep Apnea by current assessment: No - Cardiovascular Tolerate Activity: Good Heart Sounds: S1 & S2, Regular - Gastrointestinal NPO since: 629 - Anesthesia Assessment and Plan ASA Class: PS, II, E Anesthesia Type Plan: General ET Planned difficult intubation/equipment available: No
--- NOTE | 2020-02-17 09:16 | PN ---
Subjective - Date and Time Seen Date: 02/17/20 Time: 09:05 Subjective Narrative: Called to see patient for recurrent episode of vaginal bleeding. Patient reportedly passed a baseball size clot last night but did not tell anyone. Upon awakening this a.m. passed another baseball size clot and filled a pad with about 200-300 mL of blood. Patient complained of painful cramps during these bleeding episodes, but denies lightheadedness, dizziness, shortness of breath, or weakness. Objective - Review of Systems Generalized/Overall Review: Reports: No Symptoms Reported EENTM: Reports: No Symptoms Reported Respiratory: Reports: No Symptoms Reported Cardiac: Reports: No Symptoms Reported Abdominal: Reports: Other - menstrual-like cramps Genitourinary Symptoms: Reports: Other - vaginal bleeding. Minimal after passing clots each time. Musculoskeletal Complaints: Reports: No Symptoms Reported Neurological: Reports: No Symptoms Reported Skin: Reports: No Symptoms Reported Endocrine: Reports: No Symptoms Reported - Vitals Vitals: Last Vital Signs Temp 36.5 C 02/17/20 07:00 Pulse 80 02/17/20 07:00 Resp 18 02/17/20 07:00 BP 124/75 02/17/20 07:00 Pulse Ox 100 02/17/20 07:00 - Abnormal Lab Findings Abnormal Lab Findings: Abnormal Lab Results 02/16/20 Range/Units 14:23 WBC 15.2 H D (4.0-10.5) K/mm3 RBC 3.37 L (4.2-5.4) M/mm3 Hgb 10.6 L (12.5-16.0) gm/dL Hct 32.6 L (37.0-47.0) % MCH 31.5 H (27-31) pg RDW 14.1 H (11.5-14.0) % Plt Count 119 L (150-450) K/mm3 MPV 13.5 H (8-12.5) fl Immature Gran % (Auto) 0.50 H (0.001-0.429) % Immature Gran # (Auto) 0.07 H (0.000-0.0310) K/mm3 Neutrophils % 83.1 H (42-75.0) % Lymphocytes % 11.4 L (20-51) % Neutrophils # 12.7 H (1.3-6.0) K/mm3 - Exam Constitutional: Present: Alert, Oriented x3, Cooperative, No distress ENT Exam: Present: hearing grossly normal Breasts: Present: Exam deferred Respiratory: Present: no respiratory distress Cardiovascular/Chest: Present: regular rate, rhythm, no edema Abdomen: Present: soft, nontender, no rebound tenderness, other - uterus firm at U-2 /Rectal: Present: Other - minimal bleeding currently Skin Exam: Present: normal color, warm/dry, no cyanosis Neurologic: Present: alert, normal mood/affect, oriented x 3 Appearance: Present: appropriate appearance, appropriate insight Eye contact: Present: cooperative, good eye contact Thoughts: Present: normal thought pattern, normal mood /affect Assessment/Plan - Problems/Diagnosis (1) hemorrhage Problem: Acute Qualifiers: hemorrhage type: secondary hemorrhage Qualified Code(s): O72.2 - Delayed and secondary hemorrhage Narrative: This is the third episode since delivery. Each time her uterus has been firm. Suspect retained membranes are products of conception. We will do a rapid in- house COVID test and take back to the OR for a suction curettage and thorough exam to check for cervical lacerations or high vaginal lacerations. Despite estimated large amount of blood loss, patient remains asymptomatic so will type and cross but not transfuse at this time. (2) Encounter for induction of labor Problem: Resolved (3) Asthma Problem: Inactive Qualifiers: Asthma persistence: unspecified Asthma complication type: uncomplicated (4) Smoker Problem: Chronic (5) Marijuana use Problem: Inactive (6) Bipolar affective disorder, current episode depressed Problem: Chronic Qualifiers: Current episode severity: mild Qualified Code(s): F31.31 - Bipolar disorder, current episode depressed, mild (7) Attention deficit hyperactivity disorder Problem: Chronic Qualifiers: (8) Gestational thrombocytopenia without hemorrhage Problem: Chronic Qualifiers: Trimester: third trimester (9) History of gestational hypertension Problem: Chronic
[2020-02-17] MEDS ORDERED: KETOROLAC TROMETHAMINE 30 MG/ML VIAL ONE (09:26)
[2020-02-17] MEDS ORDERED: METHYLERGONOVINE MALEATE 0.2 MG/ML VIAL ONE (10:10)
[2020-02-17] MEDS: Oxytocin/Ringers Lactate 20 UNITS/1,000 ML BAG IV ONE ×2 (10:10→20:52)
[2020-02-17] MEDS ORDERED: CARBOPROST TROMETHAMINE 250 MCG/ML AMPUL IM ONE ×2 (10:23→10:29)
[2020-02-17] MEDS ORDERED: ceFAZolin SODIUM 1 GM VIAL ONE (10:27)
[2020-02-17] MEDS ORDERED: METHYLERGONOVINE MALEATE 0.2 MG/ML VIAL IM ONE (10:29)
[2020-02-17] MEDS ORDERED: MISOPROSTOL 200 MCG TABLET RC ONE (10:29)
[2020-02-17] MEDS ORDERED: ceFAZolin SODIUM 1 GM VIAL IV ONE (10:34)
[2020-02-17 10:59] LABS: Mean Cell Volume 98.1 fl (78-100); Mean Corpuscular Hemoglobin 31.6 pg (27-31); Mean Corpuscular Hgb Conc 32.2 g/dl (32-36); Mean Platelet Volume 12.5 fl (8-12.5); Neutrophil # 4.9 K/mm3 (1.3-6.0); Neutrophil % 65.5 % (42-75.0); Platelet Count 72 K/mm3 (150-450); Red Blood Count 2.06 M/mm3 (4.2-5.4); Red Cell Distribution Width 13.9 % (11.5-14.0); White Blood Count 7.4 K/mm3 (4.0-10.5)
[2020-02-17 11:06] LABS: Hematocrit 20.2 % (37.0-47.0)
[2020-02-17 11:07] LABS: Hemoglobin 6.5 gm/dL (12.5-16.0)
[2020-02-17 11:15] LABS: Prothrombin Time (Patient) 9.5 Seconds (9.1-10.7)
[2020-02-17 11:18] LABS: INR 0.96 INR (0.92-1.08); Partial Thrombolplastin Time 25.3 Seconds (24-32)
--- NOTE | 2020-02-17 11:18 | ANES ---
Post Anesthesia Discharge - Transfer of Care Transfer of Care handoff given to nurse: Yes - Discharge from PACU Discharge from PACU when meets criteria: Yes
--- NOTE | 2020-02-17 11:18 | ANES ---
Post Anesthesia Assessment - Vital Signs Vitals: Last Vital Signs Temp 36.1 C 02/17/20 10:50 Pulse 98 02/17/20 10:50 Resp 20 02/17/20 10:50 BP 115/68 02/17/20 10:50 Pulse Ox 100 02/17/20 10:50 Airway Patency: Normal - Mental Status Level Of Consciousness: Awake - Pain Level Pain Score: 4 - N/V Assessment Nausea/Vomiting Presence: None Dehydration:: No
--- NOTE | 2020-02-17 11:29 | OR ---
Operative Report - Dictated Report Narrative: DATE OF PROCEDURE: 02/17/2020 INDICATION: 24-year-old post day 1 status post vaginal delivery with 3rd episode of hemorrhage in past 24 hours. PREOPERATIVE DIAGNOSIS: hemorrhage. Possible cervical laceration and retained products of conception. POSTOPERATIVE DIAGNOSIS: Same. Cervical laceration at 12:00. Possible retained products of conception PROCEDURE: Suction curettage. Curettage. Administration of uterotonic agents (IV pitocin, Methergine 0.2mg IM, Hemobate 250mcg IM, Cytotec 1000mcg AR). Uterine packing with 2 inch x 5 yard iodoform gauze. Repair of cervical laceration. SURGEON: Tova Callahan D.O. TRAINING PERSONNEL SUPERVISOR: OR staff ANESTHESIA: General anesthesia ESTIMATED BLOOD LOSS: 800 mL intraoperatively. 2300 mL preoperatively over past 24 hours. URINE OUTPUT: Not recorded FLUID REPLACEMENT: 1000 mL of crystalloid. 1 unit of packed red blood cells started. FINDINGS: 20-week size firm uterus with large amount of clots within the cavity. 4 cm cervical laceration extending from the cervical os cephalad at the 12 o'clock position. Brisk bleeding from the uterine cavity after evacuation of all clot and debris. SPECIMEN(S): Uterine curettings with possible retained products of conception TECHNIQUE: The patient was taken to the operating room and placed in dorsal lithotomy position after adequate general anesthesia was obtained. After sterile prep and drape, the anterior lip of the cervix was noted to have a 4 cm linear laceration extending cephalad. There was no bleeding noted coming from the laceration but within the uterine cavity. 12 mm curved suction curette was inserted and a large amount of clot and debris was evacuated. Banjo curette was then inserted to the uterine fundus and additional clot and debris was removed. The bleeding seemed to subside temporarily and then began bleeding briskly once again. Uterotonic agents were sequentially added with minimal response. For this reason the uterus was packed with 2 inch wide iodoform gauze. Bleeding since seem to be well controlled at this point. The cervical laceration was repaired with a running 3-0 Vicryl Rapide. 2 g of Ancef were given intraoperatively. Because of extensive blood loss 1 unit of blood was started in the OR during the surgical procedure. Sponge, lap, instrument, and needle count were correct x 2. DISPOSITION: The patient was transferred to the post anesthesia care unit in good condition.
[2020-02-17] MEDS ORDERED: GLYCERIN/WITCH HAZEL LEAF 40 APPL BOX TP PRN (11:58)
[2020-02-17] MEDS ORDERED: OXYTOCIN/0.9 % SODIUM CHLORIDE 30 UNITS/500 ML BAG IV ONE (11:58)
[2020-02-17] MEDS ORDERED: SENNOSIDES 8.6 MG TABLET PO PRN ×2 (11:58)
[2020-02-17] MEDS ORDERED: BENZOCAINE/MENTHOL 81 SPRAY CAN TP PRN (11:58)
[2020-02-17] MEDS ORDERED: oxyCODONE HCL/ACETAMINOPHEN 1 TAB TABLET PO PRN (11:58)
[2020-02-17] MEDS ORDERED: BISACODYL 10 MG SUPP.RECT RC PRN ×2 (11:58)
[2020-02-17] MEDS ORDERED: IBUPROFEN 800 MG TABLET PO PRN (11:58)
[2020-02-17] MEDS ORDERED: HYDROCORTISONE 30 APPL TUBE TP PRN (11:58)
[2020-02-17] MEDS ORDERED: HYDROmorphone HCL 2 MG/ML VIAL IV ONE (12:33)
[2020-02-17] MEDS: DEXTROSE 5%-LACTATED RINGERS 1,000 ML IV PRN (12:49)
[2020-02-17 13:41] LABS: Mean Cell Volume 97.7 fl (78-100); Mean Corpuscular Hemoglobin 31.4 pg (27-31); Mean Corpuscular Hgb Conc 32.1 g/dl (32-36); Mean Platelet Volume 13.5 fl (8-12.5); Neutrophil % 76.8 % (42-75.0); Platelet Count 73 K/mm3 (150-450); Red Cell Distribution Width 14.2 % (11.5-14.0); White Blood Count 9.1 K/mm3 (4.0-10.5)
[2020-02-17 13:52] LABS: Hematocrit 21.5 % (37.0-47.0); Hemoglobin 6.9 gm/dL (12.5-16.0)
[2020-02-17] MEDS ORDERED: DOCUSATE SODIUM 100 MG CAPSULE PO SCH (21:00)
[2020-02-17] MEDS: DOCUSATE SODIUM 100 MG CAPSULE PO SCH (21:47)
[2020-02-18] MEDS: oxyCODONE HCL/ACETAMINOPHEN 1 TAB TABLET PO PRN ×2 (04:23→18:52)
[2020-02-18] MEDS: DEXTROSE 5%-LACTATED RINGERS 1,000 ML IV PRN ×2 (05:33→13:38)
[2020-02-18] MEDS ORDERED: SODIUM BICARBONATE 650 MG TABLET PO ONE (08:05)
[2020-02-18] MEDS: DOCUSATE SODIUM 100 MG CAPSULE PO SCH ×2 (09:00→23:13)
[2020-02-18] MEDS: IBUPROFEN 800 MG TABLET PO PRN ×2 (11:45→18:52)
[2020-02-18] MEDS: MISOPROSTOL 200 MCG TABLET PO SCH (14:22)
--- NOTE | 2020-02-18 14:42 | PN ---
Subjective - Date and Time Seen Date: 02/18/20 Time: 14:37 Objective - Review of Systems Generalized/Overall Review: Reports: No Symptoms Reported EENTM: Reports: No Symptoms Reported Respiratory: Reports: No Symptoms Reported Cardiac: Reports: No Symptoms Reported Abdominal: Reports: Other - cramoing Genitourinary Symptoms: Reports: No Symptoms Reported Musculoskeletal Complaints: Reports: No Symptoms Reported Neurological: Reports: No Symptoms Reported Skin: Reports: No Symptoms Reported Endocrine: Reports: No Symptoms Reported - Vitals Vitals: Last Vital Signs Temp 37.1 C 02/18/20 11:10 Pulse 80 02/18/20 11:10 Resp 18 02/18/20 11:10 BP 116/58 02/18/20 11:10 Pulse Ox 97 02/18/20 11:10 - Abnormal Lab Findings Abnormal Lab Findings: Abnormal Lab Results 02/16/20 Range/Units 14:23 Crossmatch See Detail - Exam Constitutional: Present: Alert, Oriented x3, Cooperative, No distress ENT Exam: Present: hearing grossly normal Breasts: Present: Exam deferred Respiratory: Present: no respiratory distress Cardiovascular/Chest: Present: regular rate, rhythm, edema Abdomen: Present: soft, nontender, no rebound tenderness. Absent: guarding, distended /Rectal: Present: Other - Vag packing removed. Vulvar edema. Uterus at U-3 Skin Exam: Present: normal color, warm/dry, no cyanosis Neurologic: Present: alert, normal mood/affect, oriented x 3 Appearance: Present: appropriate appearance, appropriate insight Eye contact: Present: cooperative, good eye contact, normal speech Thoughts: Present: normal thought pattern, normal mood /affect Cauti Physician Documentation - Urinary Catheter Management Urethral ([place]) Urethral Indwelling: Yes Reason for Continuing Indwelling Catheter: Prolonged immobilization Date of Insertion: 02/17/20 Date of Removal: 02/18/20 Time of Removal: 14:40 Assessment/Plan Plan Narrative: Patient has responded well to 2 units of packed red blood cells and 1 unit of fresh frozen plasma. Uterus remains firm with minimum vaginal bleeding. Will increase activity and monitor closely. Recheck CBC in a.m. - Problems/Diagnosis (1) hemorrhage Problem: Resolved Qualifiers: hemorrhage type: secondary hemorrhage Qualified Code(s): O72.2 - Delayed and secondary hemorrhage (2) Encounter for induction of labor Problem: Resolved (3) Asthma Problem: Inactive Qualifiers: Asthma persistence: unspecified Asthma complication type: uncomplicated (4) Smoker Problem: Chronic (5) Marijuana use Problem: Inactive (6) Bipolar affective disorder, current episode depressed Problem: Chronic Qualifiers: Current episode severity: mild Qualified Code(s): F31.31 - Bipolar disorder, current episode depressed, mild (7) Attention deficit hyperactivity disorder Problem: Chronic Qualifiers: (8) Gestational thrombocytopenia without hemorrhage Problem: Chronic Qualifiers: Trimester: third trimester (9) History of gestational hypertension Problem: Chronic
--- NOTE | 2020-02-18 21:26 | PN ---
Lia Note - Interim Date: 02/18/20 Time: 20:20 Narrative: 02/18/20 21:23 Came to see patient but she was not in the room. Nurse states that she left AMA to go outside to see her kids. Within a few minutes she returned to her room. I explained to her the risk of her having a massive hemorrhage and us not knowing where she was at which could lead to her bleeding to . I also explained the risk of interacting with people increases her risk of getting COVID and bring it back to our labor and delivery unit and infecting other people. She states she will no longer leave her room. Requests that if she leaves again she will need to sign AMA form.
[2020-02-19] MEDS: MISOPROSTOL 200 MCG TABLET PO SCH (01:59)
[2020-02-19] MEDS: IBUPROFEN 800 MG TABLET PO PRN ×2 (02:02→09:02)
[2020-02-19 06:36] LABS: Mean Cell Volume 97.3 fl (78-100); Mean Corpuscular Hemoglobin 31.1 pg (27-31); Mean Corpuscular Hgb Conc 31.9 g/dl (32-36); Mean Platelet Volume 11.8 fl (8-12.5); Neutrophil # 3.8 K/mm3 (1.3-6.0); Neutrophil % 63.4 % (42-75.0); Platelet Count 80 K/mm3 (150-450); Red Blood Count 2.22 M/mm3 (4.2-5.4); Red Cell Distribution Width 14.8 % (11.5-14.0); White Blood Count 5.9 K/mm3 (4.0-10.5)
[2020-02-19 06:38] LABS: Hematocrit 21.6 % (37.0-47.0); Hemoglobin 6.9 gm/dL (12.5-16.0)
--- NOTE | 2020-02-19 07:17 | PN ---
Subjective - Date and Time Seen Date: 02/19/20 Time: 07:04 Subjective Narrative: Patient denies headache, lightheadedness, weakness, fatigue, shortness of breath, fever, chills, or chest pain. Ambulating well and tolerating regular diet. Objective - Review of Systems Generalized/Overall Review: Reports: No Symptoms Reported EENTM: Reports: No Symptoms Reported Respiratory: Reports: No Symptoms Reported Cardiac: Reports: No Symptoms Reported Abdominal: Reports: No Symptoms Reported Genitourinary Symptoms: Reports: No Symptoms Reported, Other - breast engorgement Musculoskeletal Complaints: Reports: No Symptoms Reported Neurological: Reports: No Symptoms Reported Skin: Reports: No Symptoms Reported Endocrine: Reports: No Symptoms Reported - Vitals Vitals: Last Vital Signs Temp 36.4 C 02/18/20 22:49 Pulse 98 02/18/20 22:49 Resp 16 02/18/20 22:49 BP 116/59 02/18/20 22:49 Pulse Ox 98 02/18/20 22:49 - Abnormal Lab Findings Abnormal Lab Findings: Abnormal Lab Results 02/19/20 Range/Units 06:30 RBC 2.22 L (4.2-5.4) M/mm3 Hgb 6.9 L* (12.5-16.0) gm/dL Hct 21.6 L* (37.0-47.0) % MCH 31.1 H (27-31) pg MCHC 31.9 L (32-36) g/dl RDW 14.8 H (11.5-14.0) % Plt Count 80 L (150-450) K/mm3 Immature Gran % (Auto) 0.50 H (0.001-0.429) % - Exam Constitutional: Present: Alert, Oriented x3, Cooperative, No distress ENT Exam: Present: hearing grossly normal Breasts: Present: Exam deferred Respiratory: Present: no respiratory distress Cardiovascular/Chest: Present: regular rate, rhythm Abdomen: Present: soft, nontender, no rebound tenderness, other - Uterus at U-3, firm, NT /Rectal: Present: Exam deferred, Other - Lochia minimal Extremity: Present: no calf tenderness, pedal edema - 1+ Skin Exam: Present: normal color, warm/dry, no cyanosis Neurologic: Present: alert, normal mood/affect, oriented x 3. Absent: dizzy/light-headedness Appearance: Present: appropriate appearance, appropriate insight Eye contact: Present: cooperative, good eye contact Thoughts: Present: normal thought pattern, normal mood /affect [facility] Physician Documentation - Urinary Catheter Management Urethral ([place]) Urethral Indwelling: Yes Reason for Continuing Indwelling Catheter: Measure accurate output Date of Insertion: 02/17/20 Time of Insertion: 09:30 Date of Removal: 02/18/20 Time of Removal: 15:00 Assessment/Plan Plan Narrative: Routine discharge instructions with the addition of counseling to stop smoking. Discussed importance of taking iron and vitamin in addition to stop smoking to help build blood count back up. Follow-up in 2 weeks. Call if any questions or concerns. - Problems/Diagnosis (1) hemorrhage Problem: Resolved Qualifiers: hemorrhage type: secondary hemorrhage Qualified Code(s): O72.2 - Delayed and secondary hemorrhage (2) Anemia Problem: Acute Qualifiers: Anemia type: other cause Other causes of anemia: acute posthemorrhagic Qualified Code(s): D62 - Acute posthemorrhagic anemia (3) Encounter for induction of labor Problem: Resolved (4) Asthma Problem: Inactive Qualifiers: Asthma persistence: unspecified Asthma complication type: uncomplicated (5) Bipolar affective disorder, current episode depressed Problem: Chronic Qualifiers: Current episode severity: unspecified Qualified Code(s): F31.30 - Bipolar disorder, current episode depressed, mild or moderate severity, unspecified (6) Gestational thrombocytopenia without hemorrhage Problem: Chronic Qualifiers: Trimester: third trimester (7) Smoker Problem: Chronic (8) Marijuana use Problem: Inactive (9) Attention deficit hyperactivity disorder Problem: Chronic Qualifiers: (10) History of gestational hypertension Problem: Chronic
[2020-02-19] MEDS: oxyCODONE HCL/ACETAMINOPHEN 1 TAB TABLET PO PRN (09:02)
[2020-02-19] MEDS: DOCUSATE SODIUM 100 MG CAPSULE PO SCH (09:03)
[2020-02-19 11:44] VITALS: BP 148/80
== END 2020-02-19 11:05 | disposition home or self-care (01) | DRG 768 ==
LOC: OB 00:02
PROVIDERS: ADMIT Obstetrics & Gynecology; ATTEND Obstetrics & Gynecology
DX: Z3A.39 39 weeks gestation of pregnancy; O72.2 Delayed and secondary postpartum hemorrhage; J45.909 Unspecified asthma, uncomplicated; Z37.0 Single live birth; O99.02 Anemia complicating childbirth; O99.12 Other diseases of the blood and blood-forming organs and certain disorders involving the immune mechanism complicating childbirth; D69.6 Thrombocytopenia, unspecified; F90.9 Attention-deficit hyperactivity disorder, unspecified type; O72.1 Other immediate postpartum hemorrhage; D50.8 Other iron deficiency anemias; F31.31 Bipolar disorder, current episode depressed, mild; O13.4 Gestational [pregnancy-induced] hypertension without significant proteinuria, complicating childbirth; F17.210 Nicotine dependence, cigarettes, uncomplicated; O99.334 Smoking (tobacco) complicating childbirth